=== PATIENT | female | born 1995 | race Caucasian/White ===

== ENCOUNTER 2023-12-02 10:08 | Emergency (ER) | payer OTHER, SELFPAY ==
[2023-12-02] MEDS ORDERED: Ondansetron ODT 4 MG TAB ONE (10:28)
[2023-12-02] MEDS ORDERED: Meclizine HCl 25 MG TAB ONE (10:28)
== END 2023-12-02 11:34 | disposition home or self-care (01) ==
LOC: BURERS 10:08
DX: R42 Dizziness and giddiness (principal); F17.210 Nicotine dependence, cigarettes, uncomplicated
CPT/HCPCS: 99283; Q0162